=== PATIENT | female | born 1960 | race Caucasian/White ===

== ENCOUNTER 2020-04-04 13:53 | Outpatient (CLI) | payer BC, SELFPAY ==
--- NOTE | 2020-04-04 14:00 | XR_ITS ---
WS: [id number] KNEE LEFT TECHNIQUE: 3 views of the left knee CLINICAL INFORMATION: LEFT KNEE PAIN, CHRONIC COMPARISON: None. FINDINGS: Left knee is normal in appearance. No evidence of acute fracture dislocation. No significant effusion . Patella is normal. XR/XR knee LT 3V* [id number] IMPRESSION: Normal left knee.
== END 2020-04-04 13:54 | disposition home or self-care (01) ==
LOC: RADWPI 13:58
PROVIDERS: Family Provider Electrodiagnostic Medicine; PCP Electrodiagnostic Medicine; Visit Provider Electrodiagnostic Medicine
DX: M25.562 Pain in left knee (principal); G89.29 Other chronic pain
CPT/HCPCS: 73562

== ENCOUNTER 2020-04-20 15:39 | Outpatient (CLI) | payer BC, SELFPAY ==
--- NOTE | 2020-04-20 15:44 | MR_ITS ---
WS: [id number] MRI LEFT KNEE NONCONTRAST TECHNIQUE: Axial PD, coronal PD fat sat, coronal PD, sagittal PD, and sagittal PD fat-sat images obta ined. CLINICAL INFORMATION: MEDIAL MENISCUS TEAR, LEFT, KNEE PAIN COMPARISON: None. FINDINGS: Anterior cruciate ligament is intact. PCL is intact. Distal quadriceps and patella tendons are intact . Hypertrophic patella. Medial and lateral meniscus Intact. Chronic intrasubstance signal abnormality involving the posterior horn medial meniscus. No acute appearing meniscal tears. Moderate chondromalacia patella. Small amount of subchondral edema. Medial and lateral patellar retin aculum are intact. Medial and lateral collateral ligaments are intact. Mild chondromalacia involving the medial and lateral joint compartments. No subchondral edema. Tiny joint effusion. MR/MR knee LT wo con* [id number] IMPRESSION: 1. Normal ACL and PCL. 2. Medial and lateral meniscus are intact. No acute appearing meniscal tears. 3. Medial and lateral collateral ligaments are intact. 4. Hypertrophic patella with moderate chondromalacia and a small amount of sub chondral edema along the lateral patella facet. 5. Mild degenerative narrowing involving the medial and lateral joint compartm ents and patellofemoral articulation.
== END 2020-04-20 15:40 | disposition home or self-care (01) ==
LOC: RADWPI 15:41
PROVIDERS: Family Provider Electrodiagnostic Medicine; PCP Electrodiagnostic Medicine; Visit Provider Electrodiagnostic Medicine
DX: S83.242A Other tear of medial meniscus, current injury, left knee, initial encounter; X58.XXXA Exposure to other specified factors, initial encounter; M22.42 Chondromalacia patellae, left knee
CPT/HCPCS: 73721

== ENCOUNTER 2020-06-23 10:50 | Outpatient (CLI) | payer BC, SELFPAY ==
--- NOTE | 2020-06-23 10:52 | XR_ITS ---
WS: [id number] CHEST 2 VIEWS HISTORY: SHORTNESS OF BREATH, MALAISE AND FATIGUE COMPARISON: 08/25/2018 Lungs: Prior RIGHT upper lobectomy. Surgical sutures at the RIGHT hilum are stable. No increasing sof t tissue. No pneumonia. Additional row of surgical sutures over the RIGHT lower lung field. Mild emph ysema. No pleural effusion. Cardiac size: Normal. Mediastinum/Aorta: Normal mediastinum. Bones: Postsurgical changes in the ribs RIGHT upper thorax with splaying. No destructive lesions. XR/XR chest 2V* [id number] IMPRESSION: 1. Chronic emphysema with no pneumonia. 2. Stable prior RIGHT upper lobectomy.
== END 2020-06-23 10:51 | disposition home or self-care (01) ==
PROVIDERS: Family Provider Electrodiagnostic Medicine; PCP Electrodiagnostic Medicine; Visit Provider Nurse Practitioner Family
DX: R06.02 Shortness of breath (principal); R53.81 Other malaise; R53.83 Other fatigue; J43.9 Emphysema, unspecified; Z90.2 Acquired absence of lung [part of]
CPT/HCPCS: 71046

== ENCOUNTER → 2020-07-24 12:12 | Outpatient (BNVA) | payer BC, SELFPAY | PROVIDERS: Family Provider Electrodiagnostic Medicine; PCP Electrodiagnostic Medicine; Visit Provider Electrodiagnostic Medicine | DX: Z11.59 Encounter for screening for other viral diseases (principal) | CPT/HCPCS: 87635 ==

== ENCOUNTER 2021-01-29 09:47 | Outpatient (CLI) | payer OTHER, SELFPAY ==
--- NOTE | 2021-01-29 10:00 | XR_ITS ---
WS: [id number] CHEST 2 VIEWS HISTORY: CHRONIC OBSTRUCTIVE PULMONARY DISEASE, ACUTE EXACERBATION COMPARISON: 06/23/2020 Lungs: Prior RIGHT upper lobectomy. Mild pulmonary hyperexpansion. No pneumonia or nodules. No pleura l effusions. Cardiac size: Normal. Mediastinum/Aorta: Numerous surgical clips near the RIGHT paratracheal region. Bones: Mild thoracic spondylosis. Splaying of the posterior RIGHT fourth and fifth ribs may be postsurgical or congenital. No interval change. XR/XR chest 2V* [id number] IMPRESSION: 1. Chronic emphysema with no pneumonia. 2. Prior RIGHT upper lobectomy.
== END 2021-01-29 09:48 | disposition home or self-care (01) ==
PROVIDERS: PCP Electrodiagnostic Medicine; Visit Provider Electrodiagnostic Medicine
DX: J44.1 Chronic obstructive pulmonary disease with (acute) exacerbation (principal); Z90.2 Acquired absence of lung [part of]
CPT/HCPCS: 71046

== ENCOUNTER 2021-03-07 08:22 | Outpatient (CLI) | payer OTHER, SELFPAY ==
--- NOTE | 2021-03-07 08:29 | CT_ITS ---
WS: [id number] CT CHEST WITHOUT INTRAVENOUS CONTRAST HISTORY: COPD/PLEURISY/SHORTNESS OF BREATH/LUNG CA TECHNIQUE: Contiguous 5 mm axial imaging performed on the thorax. Coronal and sagittal reformats are submitted. All CT scans at [facility] use at least one of these dose optimization techniq ues: automated exposure control; mA and/or kV adjustment per patient size (includes targeted exams wh ere dose is matched to clinical indication); or iterative reconstruction. CONTRAST: None DLP: 387.7 mGy.cm COMPARISON: 10/08/2017 and 01/09/2016, 05/12/2015 Lungs and central airway: Status post RIGHT upper lobectomy. Changes of emphysema with areas of scarr ing and interstitial thickening. On this unenhanced examination there is no evidence for recurrence a t the resection site of the RIGHT upper lobe bronchus. There is a focal area of groundglass attenuati on in the LEFT upper lobe which has been present on multiple prior examinations. This area of groundg lass attenuation is slightly increased in size over multiple prior years now measuring 2.0 x 1.0 cm. There is additional minimal stable groundglass attenuation at the apex of the RIGHT lung. Mosaic atte nuation in the LEFT lower lobe. Pleura: Normal. No pleural effusion. Heart and pericardium: Normal size heart with no pericardial effusion. Mediastinum and munira: Surgical clips in the anterior mediastinum. Lymph nodes would be difficult to v isualize without IV contrast. Vessels: Mild atherosclerosis. Enlarged pulmonary artery. Chest wall and lower neck: No soft tissue masses. Upper abdomen: Mild atherosclerosis suprarenal aorta. No adrenal mass. Limited evaluation of the live r without IV contrast. Osseous structures: No osteoblastic or osteolytic bone disease. CT/CT chest wo con [id number] IMPRESSION: 1. Status post RIGHT upper lobectomy for lung cancer. No evidence for recurren ce at the resection site. 2. Very minimal increase in size of the groundglass attenuation in the LEFT up per lobe over multiple prior years. Groundglass attenuation measures 2.0 x 1.0 cm. Low-grade adenocarcinoma variant is not excluded. Continued close imaging a nd clinical follow-up is recommended. 3. Pulmonary hypertension. 4. Moderate emphysema.
== END 2021-03-07 08:23 | disposition home or self-care (01) ==
LOC: RAD 08:26
PROVIDERS: PCP Electrodiagnostic Medicine; Visit Provider Electrodiagnostic Medicine
DX: J44.1 Chronic obstructive pulmonary disease with (acute) exacerbation (principal); R09.1 Pleurisy; R06.02 Shortness of breath; C34.90 Malignant neoplasm of unspecified part of unspecified bronchus or lung; I27.20 Pulmonary hypertension, unspecified; Z90.2 Acquired absence of lung [part of]
CPT/HCPCS: 71250; 87635

== ENCOUNTER 2021-03-12 07:07 | Outpatient (CLI) | payer OTHER, SELFPAY ==
--- NOTE | 2021-03-12 10:13 | PFTS_ITS ---
Date of Study:03/12/21 Date of Dictation: 03/20/21 MECHANICS: Pre bronchodilator Forced vital capacity (FVC) is normal . Pre bronchodilator Forced expiratory volume in one second (FEV1) is moderately reduced 72% . FEV1/FVC is reduced. There is no significant response to bronchodilators . FLOW VOLUME LOOP: sloping of expiratory limb suggestive of airway obstruction . LUNG VOLUMES: Total lung capacity (TLC) is normal . Residual volume (RV) is increased suggestive of moderate air trappping. DIFFUSING CAPACITY FOR CARBON MONOXIDE: mildly reduced 65% . INTERPRETATION: The pulmonary function tests are consistent with obstructive ventilatory defect with moderate air trapping on lung volumes and mildly reduced gas transfer suggesting underlying emphysema. Clinical correlation recommended. [facility]
== END 2021-03-12 07:08 | disposition home or self-care (01) ==
LOC: RT 07:10
PROVIDERS: PCP Electrodiagnostic Medicine; Visit Provider Electrodiagnostic Medicine
DX: J44.1 Chronic obstructive pulmonary disease with (acute) exacerbation (principal); R09.1 Pleurisy; R06.02 Shortness of breath; C34.90 Malignant neoplasm of unspecified part of unspecified bronchus or lung
CPT/HCPCS: 94060; 94726; 94729; J7611

== ENCOUNTER 2025-02-11 14:47 | Outpatient (CLI) | payer BC, MEDICAID, SELFPAY ==
--- NOTE | 2025-02-11 14:58 | MRR_ITS ---
PROCEDURE INFORMATION: Exam: MR Head Without Contrast Exam date and time: 02/11/2025 3:28 PM Age: 64 years old Clinical indication: Condition or disease; Other: Symptomatic parkinson dz; Prior surgery; Surgery date: 6+ months; Surgery type: Left lobe lung; For 2-3 months PT has had balance issues and difficulty walking. No injury. Parkinsons is listed on reason for exam, HX of lung cancer TECHNIQUE: Imaging protocol: Magnetic resonance imaging of the head without contrast. COMPARISON: MR head wo con* [id number] 07/24/2018 8:08 AM FINDINGS: Brain: Mild age-related brain parenchymal volume loss. Similar T2/FLAIR signal alterations in the periventricular and subcortical white matter related to chronic microvascular angiopathy. No mass effect or midline shift. There is no acute intracranial hemorrhage. No abnormal intracranial enhancement. No mass effect or midline shift. There is no abnormal signal involving the brainstem. Cerebral ventricles: No ventriculomegaly. Bones: Unremarkable. Paranasal sinuses: Normal as visualized. No acute sinusitis. Mastoid air cells: Normal as visualized. No mastoid effusion. Orbital cavities: Unremarkable. Soft tissues: Unremarkable. MR/MR head wo/w con [id number] IMPRESSION: No acute findings. Senescent changes. Mild age-related atrophy.
[2025-02-11] MEDS: gadobenate dimeglumine 20 mL vial 17 ML IV (15:55)
== END 2025-02-11 14:48 | disposition home or self-care (01) ==
LOC: RAD 14:53
PROVIDERS: PCP Electrodiagnostic Medicine; Visit Provider Electrodiagnostic Medicine
DX: G20.A1 Parkinson's disease without dyskinesia, without mention of fluctuations (principal); G31.1 Senile degeneration of brain, not elsewhere classified; R93.0 Abnormal findings on diagnostic imaging of skull and head, not elsewhere classified
CPT/HCPCS: 70553